=== PATIENT | female | born 1990 | race Caucasian/White ===

== ENCOUNTER 2017-08-07 17:41 | Emergency (ER) | payer SELFPAY ==
[~2017-08-07] VITALS: Ht 170.2 cm; Wt 77.7 kg
[~2017-08-07 17:41] MED LIST: IBUP800 PO
[2017-08-07 17:47] VITALS: BP 117/85; PULSE 70; RESP 18; TEMP 99.2; O2SAT 98
--- NOTE | 2017-08-07 18:22 | PD ---
HPI . Hand injury Chief Complaint: Injury Time Seen by Provider: 18:16 Travel History International Travel<30 days: No Contact w/Intl Traveler<30days: No Traveled to known affect area: No History of Present Illness HPI Patient presents with a chief complaint of a right hand injury. She injured it last night when she hit a door. She reports minimal pain and states that she actually worked today. When asked whether or not there was anything that made her pain worse, she stated that she reflexively tried to catch a shrimp while she was at work and that that hurt. She states that her pain is made better by holding her fingers extended. Her pain is mild. PFSH Past Medical History Medical History: Denies Significant Hx Diminished Hearing: No Immunizations Current: Yes ?: Not LMP: 08/06/17 Menopausal: No : 0 Para: 0 Miscarriage: 0 : 0 Past Surgical History Surgical History: No Previous Surgery Social History Alcohol Use: Yes (3-4 DRINKS PER DAY) Tobacco Use: No (FORMER) Substance Use: Yes (THC) Allergies-Medications (Allergen,Severity, Reaction): Coded Allergies: hubbard (Unverified Allergy, Mild, TONGUE SWELLS, 08/07/17) citric acid (Unverified Allergy, Mild, TONGUE SWELLS, 08/07/17) Reported Meds & Prescriptions Reported Meds & Active Scripts Active No Active Prescriptions or Reported Medications Review of Systems Except as stated in HPI: all other systems reviewed are Neg Musculoskeletal: Positive: Arthralgias, Limited ROM Skin: Positive Change in Pigmentation Physical Exam Narrative GENERAL: Awake and alert and in no acute distress. SKIN: Some swelling on the dorsal aspect of the right hand with some mild bruising. HEAD: Normocephalic/atraumatic. EYES: Pupils are equal. Extraocular movements are intact. NECK: Full range of motion with no apparent pain. RESPIRATORY: Nonlabored. MUSCULOSKELETAL: No bruising, swelling and tenderness on the dorsal aspect of the right hand mainly at the third MCP joint. She also has some tenderness of the second and forth MCP joints. NEUROLOGICAL: Nonfocal. PSYCHIATRIC: Appropriate mood and affect. Data Data Last Documented VS Vital Signs Date Time Temp Pulse Resp B/P (MAP) Pulse Ox O2 Delivery O2 Flow Rate FiO2 08/07/17 17:47 99.2 70 18 117/85 (96) 98 Orders Orders Hand, Complete ([id number]) (08/07/17 18:18) Acetamin-Hydrocod 325-5 Mg ([place] 5-325 (08/07/17 18:30) MDM Medical Decision Making Medical Screen Exam Complete: Yes Emergency Medical Condition: Yes Differential Diagnosis Differential diagnosis of extremity trauma includes but is not limited to fracture, sprain or strain, dislocation, contusion Narrative Course This patient presents for evaluation of an injury to her right hand. X-ray is pending. X-ray to my interpretation is negative for fracture. Diagnosis Primary Impression: Contusion of right hand Qualified Codes: S60.221A - Contusion of right hand, initial encounter Patient Instructions: Contusion in Adults (DC), General Instructions, RICE Therapy (ED) Scripts No Active Prescriptions or Reported Meds Disposition: 01 DISCHARGE HOME Condition: Stable Lala Pena MD Aug 07, 2017 18:22
[2017-08-07] MEDS ORDERED: ACETAMINOPHEN/HYDROcodone 325 MG/5 MG TAB PO ONE (18:30)
--- NOTE | 2017-08-07 18:51 | RADRPT ---
EXAM DATE/TIME: 08/07/2017 18:28 [facility] COMPARISON: No previous studies available for comparison. INDICATIONS : Patient complains of right hand pain after punching wall. MEDICAL HISTORY : Boxers fracture SURGICAL HISTORY : None. ENCOUNTER: Initial ACUITY: 2 days PAIN SCORE: 9/10 LOCATION: Right hand FINDINGS: Three view examination of the right hand demonstrates significant soft tissue swelling across the met acarpophalangeal joints. The bony structures are intact without evidence of fracture or dislocation. CONCLUSION: Soft tissue swelling without evidence of acute fracture. Blas Solano MD on August 07, 2017 at 18:48 Board Certified Radiologist. This report was verified electronically.
== END 2017-08-07 18:58 | disposition home or self-care (01) ==
LOC: PHED 17:41 → PHEFT 18:58
DX: S60.221A Contusion of right hand, initial encounter (principal); W22.09XA Striking against other stationary object, initial encounter
CPT/HCPCS: 73130; 99283